=== PATIENT | female | born 1980 | race Caucasian/White ===

== ENCOUNTER 2016-08-13 06:55 | Emergency (ER) | payer OTHER ==
[2016-08-13 08:21] LABS: HEMOGLOBIN 14.4 gm/dl (12.3-15.3); RED BLOOD COUNT 4.9 M/UL (4.00-5.10); WHITE BLOOD COUNT 12.1 K/UL (4.5-11.0)
[2016-08-13 08:44] LABS: BUN/CREATININE RATIO 18 (0-10)
== END 2016-08-13 12:35 | disposition home or self-care (01) ==
LOC: ER1 06:55
PROVIDERS: Emergency Medicine
DX: R10.31 Right lower quadrant pain (principal); I10 Essential (primary) hypertension; J45.909 Unspecified asthma, uncomplicated; F17.200 Nicotine dependence, unspecified, uncomplicated
CPT/HCPCS: 36415; 80053; 81001; 82150; 83690; 84703; 85025; 87086; 96361; 96374; 96375; 99284; J2270; J2405; J7030; J7040; J7050; Q9962

== ENCOUNTER → 2020-09-24 | Outpatient (CLI) | payer OTHER ==
[~2020-09-24] MED LIST: BENADRYL 25MG C25 MG PO; BENADRYL 50MG C50 MG PO; CEFUROXIME500 MG PO; NORCO 10-325 T1 EACH PO; PEPCID20 MG PO; PERCOCET 5/325 T1 EA PO; PREDNISONE20 MG PO; PREDNISONE50 MG PO; PRINIVIL20 MG PO; PROTONIX40 MG PO
[2020-09-24 10:57] LABS: HEMOGLOBIN 15.1 gm/dl (12.3-15.3); RED BLOOD COUNT 4.74 M/UL (4.00-5.10); WHITE BLOOD COUNT 13.3 K/UL (4.5-11.0)
[2020-09-24 11:21] LABS: BUN/CREATININE RATIO 15 (0-10)
[2020-09-25 11:14] LABS: RHEUMATOID ARTHRITIS FACTOR <10.0 IU/mL (0.0-13.9)
[2020-09-26 00:07] LABS: CCP ANTIBODIES IGG/IGA 7 units (0-19)
== END ==
LOC: LAB 09:01
PROVIDERS: Nurse Practitioner Family
DX: M25.562 Pain in left knee (principal); M25.561 Pain in right knee; I47.2 Ventricular tachycardia
CPT/HCPCS: 36415; 80053; 83735; 85027; 85652; 86038; 86140; 86200; 86431

== ENCOUNTER → 2021-10-11 | Outpatient (CLI) | payer OTHER ==
[2021-10-11 10:24] LABS: HEMOGLOBIN 15.5 gm/dl (12.3-15.3); RED BLOOD COUNT 4.93 M/UL (4.00-5.10); WHITE BLOOD COUNT 14.6 K/UL (4.5-11.0)
[2021-10-11 10:51] LABS: BUN/CREATININE RATIO 11 (0-10)
== END ==
LOC: OPSV2 09:00
PROVIDERS: Obstetrics & Gynecology
DX: Z01.812 Encounter for preprocedural laboratory examination (principal); N93.9 Abnormal uterine and vaginal bleeding, unspecified
CPT/HCPCS: 80053; 81001; 85025

== ENCOUNTER → 2021-10-22 | Day surgery (SDC) | payer OTHER ==
[~2021-10-22] MED LIST changes: +DOCUSATE SODIU250 MG PO; +HYDROCODONE-AC1 EACH PO; +IBUPROFEN600 MG PO
== END | disposition home or self-care (01) ==
LOC: OR 05:27
DX: N80.0 Endometriosis of uterus (principal); D25.9 Leiomyoma of uterus, unspecified; N81.9 Female genital prolapse, unspecified; K46.9 Unspecified abdominal hernia without obstruction or gangrene; N81.10 Cystocele, unspecified; N83.292 Other ovarian cyst, left side; R32 Unspecified urinary incontinence; I10 Essential (primary) hypertension; Z98.890 Other specified postprocedural states
CPT/HCPCS: 93005; C1769; J0690; J1100; J1170; J2001; J2250; J2405; J2704; J2710; J3010; J7050